=== PATIENT | male | born 1930 | race Caucasian/White ===

== ENCOUNTER 2017-05-07 08:44 | Outpatient (CLI) | payer MEDICARE, BC ==
[2017-05-07 09:23] LABS: BASOPHILS % 0.8 (0.0-1.5); EOSINOPHILS % 5.4 % (0.0-6.8); MEAN CORPUSCULAR HEMOGLOBIN 30.1 pg (28.0-34.0); MEAN CORPUSCULAR VOLUME 92.1 fl (80.0-100.0); MONOCYTES % 4.4 % (0.0-11.0); NEUTROPHILS # 2.8 # k/uL (1.4-7.7)
[2017-05-07 09:35] LABS: eGFR (African) > 60; eGFR (Non-African) > 60
== END 2017-05-07 08:45 ==
LOC: LAB 08:44
PROVIDERS: ATTEND Internal Medicine
DX: Z00.00 Encounter for general adult medical examination without abnormal findings (principal); I10 Essential (primary) hypertension; Z79.899 Other long term (current) drug therapy; F32.9 Major depressive disorder, single episode, unspecified
CPT/HCPCS: 36415; 80053; 80061; 84153; 84439; 84443; 85025